=== PATIENT | male | born 2000 | race Caucasian/White ===

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

== ENCOUNTER 2020-01-01 12:43 | Outpatient (CLI) | payer OTHER ==
--- NOTE | 2020-01-01 14:29 | CT ---
CT ABDOMEN AND PELVIS WITH AND WITHOUT IV CONTRAST: 01/01/20 HISTORY: Lower abdominal pain and elevated pancreatic enzymes. COMPARISON: None. FINDINGS: The lung bases are clear. No calcified gallstones are seen. The liver, spleen, adrenal glands and kid neys are normal. There is good enhancement of the pancreatic parenchyma without definite peripancreatic fluid. The poe creatic duct is dilated. No pancreatic calcifications or definite pancreatic mass is identified. No free air or lymphadenopathy seen in the abdomen or pelvis. There is a small amount of free fluid i n the pelvis. The small bowel loops are not abnormally dilated. A normal appearing appendix is presen t. The bony structures are unremarkable. IMPRESSION: 1. Pancreatic ductal dilatation. Further evaluation with endoscopic ultrasound is recommended. 2. Small amount of free fluid in the pelvis. POS: OFF
== END 2020-01-01 12:44 | disposition home or self-care (01) ==
LOC: SCSCT 12:43
PROVIDERS: ATTEND Internal Medicine Gastroenterology
DX: R10.9 Unspecified abdominal pain (principal); R94.5 Abnormal results of liver function studies; R74.8 Abnormal levels of other serum enzymes; K86.89 Other specified diseases of pancreas
CPT/HCPCS: 74177